=== PATIENT | female | born 1960 | race Caucasian/White ===

== ENCOUNTER 2017-03-28 22:03 | Emergency (ER) | payer MEDICAID ==
[~2017-03-28] VITALS: Ht 157.5 cm; Wt 95.7 kg
[2017-03-28 22:05] VITALS: BP 167/87
[2017-03-28] MEDS ORDERED: LIDOCAINE 1%, 20ML ONE (22:27)
[2017-03-28] MEDS ORDERED: LIDOCAINE 1%, 20ML SQ ONE (22:30)
[2017-03-28] MEDS ORDERED: PENICILLIN VK 500MG TABLET PO ONE (23:00)
== END 2017-03-28 23:18 | disposition home or self-care (01) ==
LOC: ED 22:45
DX: K04.7 Periapical abscess without sinus (principal); Z88.6 Allergy status to analgesic agent
CPT/HCPCS: 41800; 99283; J3490